=== PATIENT | female | born 2000 | race Caucasian/White ===

== ENCOUNTER 2023-03-28 19:20 | Emergency (ER) | payer MEDICAID, SELFPAY ==
[2023-03-28 19:21] VITALS: BP 147/94; PULSE 80; RESP 16; TEMP 36.1; O2SAT 99; BMI 30.5
--- NOTE | 2023-03-28 19:40 | RAD_ITS ---
EXAM: XR CERVICAL SPINE, 2 OR 3 VIEWS CLINICAL INDICATION: Injury/Pain TECHNIQUE: Frontal and lateral views of the cervical spine. COMPARISON: No relevant prior studies available. FINDINGS: VERTEBRAE: There is mild straightening of the normal cervical lordosis. This can suggest neck strain. Preserved vertebral body height. No acute fracture. No spondylolisthesis. No significant facet arthropathy. DISC SPACES: Unremarkable. Disc spaces are maintained. SOFT TISSUES: Unremarkable. No prevertebral soft tissue widening. LUNG APICES: Clear. RAD/Cerv Spine 2 or 3 Views IMPRESSION: There is mild straightening of the normal cervical lordosis. This can suggest neck strain. Electronically Signed: Daren Monge MD at 20:13 EDT ,
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
== END 2023-03-28 21:02 | disposition home or self-care (01) ==
PROVIDERS: Emergency Provider Emergency Medicine; Visit Provider Emergency Medicine
DX: S16.1XXA Strain of muscle, fascia and tendon at neck level, initial encounter (principal); S40.811A Abrasion of right upper arm, initial encounter; S20.211A Contusion of right front wall of thorax, initial encounter; W51.XXXA Accidental striking against or bumped into by another person, initial encounter
CPT/HCPCS: 72040; 99282

== ENCOUNTER 2023-05-20 19:24 | Emergency (ER) | payer MEDICAID, SELFPAY ==
[2023-05-20 19:25] VITALS: BP 121/81; PULSE 94; RESP 17; TEMP 36.3; O2SAT 99; BMI 29.2
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
[2023-05-20] MEDS: predniSONE 20 MG Tablet 40 MG PO (22:51)
== END 2023-05-20 22:55 | disposition home or self-care (01) ==
PROVIDERS: Emergency Provider Emergency Medicine; Visit Provider Emergency Medicine
DX: M67.431 Ganglion, right wrist (principal); M67.833 Other specified disorders of tendon, right wrist
CPT/HCPCS: 73110; 99283